=== PATIENT | female | born 1950 | race Caucasian/White ===

== ENCOUNTER 2017-11-10 05:45 | Observation (INO) | payer OTHER ==
[2017-11-04 15:19] VITALS: BMI 37.0
--- NOTE | 2017-11-04 15:44 | PAT Medication Instructions ---
Service Date Nov 04, 2017. Current Home Medication List Acetaminophen (Tylenol), 1,000 MG PO Q6-8 PRN for RN Alendronate/Cholecalciferol (Fosamax+D 70MG/2800 Iu), 1 TABLET PO WK Ascorbic Acid (Vitamin C), 500 MG PO QAM Bumetanide (Bumex), 2 MG PO QAM Ergocalciferol (Vitamin D 16110 Unit), 50,000 UNIT PO WK Loratadine (Claritin), 10 MG PO PRN Lorazepam (Ativan), 1 MG PO HS Saline (Saline Nasal [place] Infant), 2 SPRY GLADYS PRN Simethicone (Gas-X), 1 TAB PO PRN Venlafaxine Hcl (Effexor Xr), 1 CAP PO QAM [Reflux Med], 1 TAB PO PRN Medication Instructions For Your Scheduled Surgery - Continue as directed: Ergocalciferol (Vitamin D 78091 Unit), 50,000 UNIT PO WK Alendronate/Cholecalciferol (Fosamax+D 70MG/2800 Iu), 1 TABLET PO WK - Hold the following medications the morning of surgery: Ascorbic Acid (Vitamin C), 500 MG PO QAM Bumetanide (Bumex), 2 MG PO QAM Loratadine (Claritin), 10 MG PO PRN Simethicone (Gas-X), 1 TAB PO PRN [Reflux Med], 1 TAB PO PRN - Take the following medications the morning of surgery with a sip of water: Venlafaxine Hcl (Effexor Xr), 1 CAP PO QAM Saline (Saline Nasal [place] ), 2 SPRY GLADYS PRN (if needed) Acetaminophen (Tylenol), 1,000 MG PO Q6-8 PRN for RN (okay to take up to 4 hours prior to surgery if needed) - Take the following medications as scheduled the night before surgery: [Reflux Med], 1 TAB PO PRN (if needed) Simethicone (Gas-X), 1 TAB PO PRN(if needed) Saline (Saline Nasal [place] Infant), 2 SPRY GLADYS PRN(if needed) Lorazepam (Ativan), 1 MG PO HS Loratadine (Claritin), 10 MG PO PRN(if needed) Acetaminophen (Tylenol), 1,000 MG PO Q6-8 PRN for RN(if needed) If you have any questions please call us at [phone] or [phone] or [phone]
[2017-11-04 16:33] LABS: BASO % 0.7 %; BASO ABS # 0.05 K/uL (0-0.2); EOS % 2.6 %; EOS ABS # 0.19 K/uL (0-0.5); HEMATOCRIT 36.2 % (37-47); IG# 0.01 K/uL (0.00-0.02); LYMPH % 26.9 %; LYMPH ABS # 1.94 K/uL (1.2-3.4); MEAN CELL VOLUME 91.4 fL (80-100); MEAN CORPUSCULAR HEMOGLOBIN 30.3 pg (25-34); MEAN CORPUSCULAR HGB CONC 33.1 g/dl (32-36); MEAN PLATELET VOLUME 10.8 fL (7.4-10.4); MONO % 6.5 %; MONO ABS # 0.47 K/uL (0.11-0.59); NEUT % 63.2 %; NEUT ABS # 4.55 K/uL (1.4-6.5); PLATELET COUNT 348 K/uL (130-400); RED CELL DISTRIBUTION WIDTH CV 13.3 % (11.5-14.5); RED CELL DISTRIBUTION WIDTH SD 44.3 fL (36.4-46.3); WHITE BLOOD COUNT 7.21 K/uL (4.8-10.8)
[2017-11-04 16:44] LABS: PTT PATIENT 26.6 SECONDS (21.0-31.0)
[2017-11-04 16:45] LABS: ALBUMIN 3.5 gm/dl (3.4-5.0)
[~2017-11-10] VITALS: Ht 154.9 cm; Wt 88.4 kg
[~2017-11-10 05:45] MED LIST: ACET-1256 PO; ASCO1CAP3 PO; ATV/1 PO; BUME2TAB3 PO; CLR10 PO; ERGO500037 PO; FSMD/70 PO; LANS30CA12 PO; SALI1SPR15 NAE; SIME80CH PO; VENL75CA PO
[2017-11-10] MEDS ORDERED: CEFAZOLIN 2000MG IV PUSH 15 ML IV SCH (06:00)
[2017-11-10] MEDS ORDERED: LACTATED RINGER'S 1000ML 1,000 ML IV SCH ×2 (06:00)
[2017-11-10 06:47] VITALS: BP 155/84; PULSE 97; TEMP 36.6; O2SAT 97; Ht 154.9 cm; Wt 88.4 kg
[2017-11-10] MEDS ORDERED: NAPR-1169 PO (06:47)
--- NOTE | 2017-11-10 06:52 | History & Physical Bridge Note ---
H&P Re-Evaluation Bridge Note: I have examined the patient, reviewed the History & Physical and in the interval since the performance of the History & Physical I have noted the following changes of clinical significance: No changes noted
[2017-11-10] MEDS ORDERED: HYDROmorphone INJ 2 MG/ML SYR/VIAL ONE ×2 (06:56→14:32)
[2017-11-10] MEDS ORDERED: METOCLOPRAMIDE HCL INJ 5 MG/ML 2 ML VIAL ONE (06:56)
[2017-11-10] MEDS ORDERED: FENTANYL CITRATE INJ 50 MCG/1 ML 2 ML VIAL ONE ×4 (06:56→16:25)
[2017-11-10] MEDS ORDERED: ONDANSETRON INJ 2 MG/ML 2 ML VIAL ONE (06:56)
[2017-11-10] MEDS ORDERED: PROPOFOL IV EMULSION 10 MG/ML 20 ML VIAL IV ONE (06:56)
[2017-11-10] MEDS ORDERED: LIDOCAINE HCL 2% 2 ML VIAL (20MG/ML) ONE (06:56)
[2017-11-10] MEDS ORDERED: MIDAZOLAM HCL 1 MG/ML 2ML VIAL ONE ×2 (06:56→14:53)
[2017-11-10] MEDS ORDERED: ACETAMINOPHEN 1000 MG/100 ML IV IV ONE (06:59)
[2017-11-10] MEDS ORDERED: SODIUM CHLORIDE 0.9% INJ 10 ML VIAL ONE (07:06)
[2017-11-10] MEDS ORDERED: BUPIVACAINE 0.25% 30 ML VIAL ONE (07:15)
[2017-11-10] MEDS ORDERED: LIDOCAINE/EPINEPHRINE 1% 20 ML VIAL ONE (07:15)
[2017-11-10] MEDS ORDERED: EpHEDrine SULFATE 50MG/5ML SYR ONE (09:38)
[2017-11-10] MEDS ORDERED: PHENYLEPHRINE 100MCG/ML 5ML SYR ONE (09:38)
[2017-11-10] MEDS ORDERED: HYDROmorphone INJ 1 MG/ML SYR IV PRN (10:00)
[2017-11-10] MEDS ORDERED: LABETALOL HCL IV 5 MG/ML 20ML IV PRN (10:00)
[2017-11-10] MEDS ORDERED: MEPERIDINE HCL 25 MG/ML CARP IV PRN (10:00)
[2017-11-10] MEDS ORDERED: ONDANSETRON INJ 2 MG/ML 2 ML VIAL IV PRN ×2 (10:00→16:15)
[2017-11-10] MEDS ORDERED: EpHEDrine SULFATE INJ 50 MG/ML AMP IV PRN (10:00)
[2017-11-10] MEDS ORDERED: FENTANYL CITRATE INJ 50 MCG/1 ML 2 ML VIAL IV PRN (10:00)
[2017-11-10] MEDS ORDERED: ATROPINE SULFATE 0.1 MG/ML 5ML SYR IV PRN (10:00)
--- NOTE | 2017-11-10 10:06 | Discharge Instructions ---
Discharge Instructions Date of Service Nov 10, 2017. Admission Reason for Admission: Multiple Abdominal Wall Hernias, Abdominal Pannus Discharge Discharge Diagnosis / Problem: Multiple Abdominal Wall Hernias, Abdominal Pannus Discharge Goals Goal(s): Decrease discomfort, Improve function Activity Recommendations Activity Limitations: as noted below Lifting Limitations: no more than 10 pounds Exercise/Sports Limitations: until after follow-up appointment May Resume Sexual Activity: after follow-up appointment Driving or Machine Use: resume 1 day after discharge . Instructions / Follow-Up Instructions / Follow-Up Please follow-up with Dr. Ga in the General Surgery Clinic in 1-2 weeks. Please call the General Surgery Clinic at [phone] to schedule an appointment if you do not have one already. Please call the office with any questions or concerns. Current Hospital Diet Patient's current hospital diet: Discharge Diet Recommended Diet: Regular Diet Procedures Procedures Performed: Open Repair Multiple Abdominal Hernias with Mesh - Dr. Ga Bilateral Breast Reduction; Panniculectomy - Dr. Brown Pending Studies Studies pending at discharge: no Medical Emergencies . Who to Call and When: Medical Emergencies: If at any time you feel your situation is an emergency, please call 911 immediately. . Non-Emergent Contact Non-Emergency issues call your: Primary Care Provider, Surgeon Call Non-Emergent contact if: temperature is above 101.5, your pain is not controlled, wound has increased drainage, wound has increased redness . "Provider Documentation" section prepared by Maureen Castellano. . VTE Core Measure Inpt VTE Proph given/why not?: SCD's [place] Drug Monitoring Program Search Results: patient reviewed within database, no issues identified
--- NOTE | 2017-11-10 10:08 | [facility] Operative Report ---
Operative Report Operative Date Nov 10, 2017. Pre-Operative Diagnosis Abdominal Pannus, Incisional Hernia Post-Operative Diagnosis Abdominal Pannus, Incisional Hernia;adhesions Procedure(s) Performed Open Repair Multiple Abdominal Hernias with Mesh; enterolysis - Dr. Ga Bilateral Breast Reduction; Panniculectomy - Dr. Brown Surgeon Dr. Tena Brown, Dr. César Ga [employer] President Surgeon(s) Yvonne Childers PA-C, Maureen Castellano PA-C Estimated Blood Loss per Dr. Brown; approx 5 cc lost during hernia repair portion of the case Anesthesia Type General Complication(s) none Disposition Recovery Room / PACU Description of Procedure Please see Dr. Whiting's operative report for the majority of the procedure. The patient had already been intubated and abdominal pannus flaps created when I was called into the room. They had exposed the entire abdomen up to around the xiphoid process. There were 2 hernias 1 umbilical and one supraumbilical. No other palpable hernias were seen or identified. I did take down the sac using electrocautery. Once we did this it exposed some small bowel as well as omental adhesions to the undersurface. I took these down using small amounts electrocautery as well as Metzenbaum scissors. I was then able to feel through the ventral hernia into the umbilical hernia. There was a bridge of fascia which I disconnected creating 1 large defect to make repair more manageable. Once I had the discrete fascial edges I primarily closed these using 0 PDS in interrupted [id number] fashion. There was not much tension and I therefore decided not to do a component separation. I did use an Ovitex mesh onlay. I made a slit in the mesh so that we could wrap the arms around the umbilicus. I then secured this to underlying fascia using 2-0 Prolene in simple interrupted fashion. The entire mesh laid nice and tension free and covered the defect for several centimeters in all directions. At this point the case I scrubbed out. Again see Dr. Brown for the remainder of the case and wound closure I attest to the content of the Intraoperative Record and any orders documented therein. Any exceptions are noted below.
[2017-11-10] MEDS ORDERED: CEFAZOLIN SOD 1 GM VIAL ONE (10:25)
[2017-11-10] MEDS ORDERED: TISSEEL FIBRIN SEALANT 10ML TOP ONE (10:47)
[2017-11-10] MEDS ORDERED: KETAMINE HCL INJ 50 MG/ML 10 ML VIAL ONE (12:52)
[2017-11-10] MEDS ORDERED: LIDOCAINE/EPINEPHRINE 1% 20 ML VIAL INJ ONE (14:26)
[2017-11-10] MEDS ORDERED: GLYCOPYRROLATE INJ 0.2 MG/ML VIAL ONE (15:03)
[2017-11-10] MEDS ORDERED: NEOSTIGMINE METHYLSULFATE 5 MG/5 ML SYR ONE (15:03)
--- NOTE | 2017-11-10 15:53 | [facility] Post Operative Brief Note ---
Immediate Operative Summary Operative Date Nov 10, 2017. Pre-Operative Diagnosis Abdominal Pannus, Incisional Hernia, Macromastia Post-Operative Diagnosis Abdominal Pannus, Incisional Hernia, adhesions, macromastia Procedure(s) Performed Open Repair Multiple Abdominal Hernias with Mesh; enterolysis - Dr. Ga Bilateral Breast Reduction; Panniculectomy - Dr. Brown Surgeon Dr. Tena Bronw, Dr. César Ga Clinical Leader Surgeon(s) Yvonne Childers PA-C, Maureen Castellano PA-C Estimated Blood Loss 125ML Findings Consistent with Post-Op Diagnosis Specimens A.) Abdominal Pannus - sent out of room to lab by Loco Sandhu OR lauren at 1300 B.) Left Breast (1202grams) C.) Right Breast (1188grams) Anesthesia Type General Complication(s) none Disposition Disposition: Recovery Room / PACU
[2017-11-10] MEDS ORDERED: LABETALOL HCL IV 5 MG/ML 20ML IV ONE (16:10)
[2017-11-10] MEDS ORDERED: PROMETHAZINE HCL INJ 12.5 MG in SODIUM CHLORIDE 0.9% 50ML 50 ML IV PRN (16:15)
[2017-11-10] MEDS ORDERED: SIMETHICONE 80 MG CHEW PO PRN (16:15)
[2017-11-10] MEDS ORDERED: LORATADINE 10 MG TAB PO PRN (16:15)
[2017-11-10] MEDS ORDERED: DiphenhydrAMINE HCL 50 MG/ML VIAL IV PRN (16:15)
[2017-11-10] MEDS ORDERED: OXYCODONE/ACETAMINOPHEN 5-325 TAB PO PRN (16:15)
[2017-11-10] MEDS ORDERED: OXAZEPAM 10MG CAP PO PRN (16:15)
[2017-11-10] MEDS ORDERED: MoRPHine SULFATE 2 MG/ML CARP IV PRN ×2 (16:15)
[2017-11-10] MEDS ORDERED: ACETAMINOPHEN 325 MG TAB PO PRN (16:15)
--- NOTE | 2017-11-10 17:15 | Anesthesiology Progress Note ---
Anesthesia Post Op Note Date & Time Nov 10, 2017 at 17:15 Vital Signs Pain Intensity: 1 Vital Signs Past 12 Hours Date Time Temp Pulse Resp B/P (MAP) Pulse Ox O2 Delivery O2 Flow Rate FiO2 11/10/17 17:06 87 15 11/10/17 17:06 87 15 100 11/10/17 17:05 151/84 11/10/17 17:01 90 9 11/10/17 17:01 90 9 100 11/10/17 17:00 163/77 11/10/17 16:56 89 10 11/10/17 16:56 89 10 100 11/10/17 16:55 150/88 11/10/17 16:51 96 14 99 11/10/17 16:51 96 14 11/10/17 16:50 101 13 165/89 100 11/10/17 16:50 36.3 100 13 11/10/17 16:45 87 12 151/86 100 11/10/17 16:45 87 12 11/10/17 16:40 88 10 162/88 100 11/10/17 16:40 87 10 11/10/17 16:35 81 11 11/10/17 16:35 81 11 150/76 100 11/10/17 16:30 87 10 157/104 100 11/10/17 16:30 88 10 11/10/17 16:25 93 15 11/10/17 16:25 92 15 156/92 100 11/10/17 16:20 90 11 157/85 99 11/10/17 16:20 91 11 11/10/17 16:15 91 13 11/10/17 16:15 91 13 140/85 99 11/10/17 16:14 153/94 11/10/17 16:10 36 95 14 153/94 97 Oxymask 7 11/10/17 06:47 36.6 97 20 155/84 (107) 97 Room Air Notes Mental Status: alert / awake / arousable, participated in evaluation Pt Amnestic to Procedure: Yes Nausea / Vomiting: adequately controlled Pain: adequately controlled Airway Patency, RR, SpO2: stable & adequate BP & HR: stable & adequate Hydration State: stable & adequate Anesthetic Complications: no major complications apparent
[2017-11-10 17:20] VITALS: BP 152/76; PULSE 98; TEMP 36.6; O2SAT 100
[2017-11-10 18:20] VITALS: BP 139/83; PULSE 96; TEMP 36.6; O2SAT 100
[2017-11-10] MEDS: LACTATED RINGER'S 1000ML 1,000 ML IV SCH (18:35)
[2017-11-10] MEDS: MoRPHine SULFATE 2 MG/ML CARP IV PRN ×3 (18:36→21:53)
[2017-11-10] MEDS: CEFAZOLIN IV 2,000 MG in SYRINGE 5 ML IV SCH (19:03)
[2017-11-10] MEDS ORDERED: GLUCOSE 10 TABS/TUBE PO PRN (19:15)
[2017-11-10] MEDS ORDERED: GLUCAGON FOR INJ 1 MG VIAL SQ PRN (19:15)
[2017-11-10] MEDS ORDERED: GLUCOSE 40% GEL 15 GM TUBE PO PRN (19:15)
[2017-11-10 19:20] VITALS: BP 146/84; PULSE 96; TEMP 36.5; O2SAT 100
[2017-11-10 19:40] VITALS: O2SAT 100
[2017-11-10] MEDS ORDERED: LORAZEPAM 1 MG TAB PO SCH (21:00)
[2017-11-10] MEDS ORDERED: IV FLUIDS COMPLETED PRN (21:00)
[2017-11-10] MEDS: INSULIN ASPART 100 UNITS/ML 3 ML PEN SC SCH (21:35)
[2017-11-10 23:45] VITALS: BP 132/83; PULSE 92; TEMP 37; O2SAT 97
[2017-11-11] MEDS: CEFAZOLIN IV 2,000 MG in SYRINGE 5 ML IV SCH (02:16)
[2017-11-11 03:50] VITALS: BP 121/78; PULSE 123; TEMP 36.9; O2SAT 93
[2017-11-11] MEDS: MoRPHine SULFATE 2 MG/ML CARP IV PRN (04:30)
[2017-11-11 04:35] VITALS: PULSE 112; O2SAT 95
[2017-11-11] MEDS: OXYCODONE/ACETAMINOPHEN 5-325 TAB PO PRN ×2 (05:28→09:49)
[2017-11-11] MEDS: LACTATED RINGER'S 1000ML 1,000 ML IV SCH (05:28)
[2017-11-11 06:49] VITALS: BP 124/70; PULSE 114; TEMP 36.9; O2SAT 95
[2017-11-11 07:19] LABS: BASO % 0.3 %; BASO ABS # 0.03 K/uL (0-0.2); EOS % 1.9 %; HEMATOCRIT 28.8 % (37-47); HEMOGLOBIN 9.5 g/dL (12.0-16.0); IG# 0.02 K/uL (0.00-0.02); LYMPH % 10.2 %; LYMPH ABS # 1.07 K/uL (1.2-3.4); MEAN CELL VOLUME 92.3 fL (80-100); MEAN CORPUSCULAR HEMOGLOBIN 30.4 pg (25-34); MEAN PLATELET VOLUME 10.2 fL (7.4-10.4); MONO % 7.8 %; MONO ABS # 0.81 K/uL (0.11-0.59); NEUT % 79.6 %; NEUT ABS # 8.31 K/uL (1.4-6.5); PLATELET COUNT 248 K/uL (130-400); RED CELL DISTRIBUTION WIDTH CV 13.6 % (11.5-14.5); RED CELL DISTRIBUTION WIDTH SD 45.7 fL (36.4-46.3); WHITE BLOOD COUNT 10.44 K/uL (4.8-10.8)
[2017-11-11 07:28] LABS: INR 1.1 (0.9-1.1); PTT PATIENT 28.1 SECONDS (21.0-31.0)
[2017-11-11 07:53] LABS: CALCIUM 7.3 mg/dl (8.5-10.1); CREATININE 1.16 mg/dl (0.60-1.20)
--- NOTE | 2017-11-11 08:15 | Discharge Instructions ---
Discharge Instructions Date of Service Nov 11, 2017. Admission Reason for Admission: Multiple Abdominal Wall Hernias, Abdominal Pannus Discharge Discharge Diagnosis / Problem: macromastia, abdominal pannus Discharge Goals Goal(s): Decrease discomfort, Improve function Activity Recommendations Activity Limitations: per Instructions/Follow-up section ACTIVITY RECOMMENDATIONS: __Normal activities _x_No bending, lifting or straining. Do not stand straight until comfortable __No driving __Driving allowed when you are off pain medications _x_Walking permitted __You should have help at home for ___ days DRESSINGS: __No dressings required __Keep dressings dry/in place until first office visit _x_Remove yellow gauze from belly button and replace daily. OK to replace the yellow gauze around your drain sites once a day. Do not need gauze over incisions, but may place for comfort __Apply ice ___ days __Remove dressings and reapply garment __Apply antibiotic ointment (Bacitracin, Neosporin, etc) to wounds 3-4 times/ day for 10 days BATHING: _x_Keep dressings dry _x_Sponge bathing permitted away from incisions. Do not get breasts wet __Showering permitted _x_No swimming, hot tubs or soaking in a tub MEDICATIONS: Resume previous medications unless instructed otherwise by your surgeon. _x_Do not use aspirin, Motrin, Advil or Ibuprofen as these may promote bleeding. Please use Tylenol. _x_Prescription(s) provided: pain medication and antibiotics provided at your last office visit. Start antibiotics today. Must come into office by Friday if you need more pain medication- cannot call into pharmacy OTHER INSTRUCTIONS: _x_Record drain output 2-3 times per day. Call the office to have drain removed when output is 10cc/24 hours SPECIAL CARE INSTRUCTIONS: * It is normal to have a mild fever after surgery. If your temperature is higher than 101.5 degrees F, please call the office at [phone]. * Constipation is a typical side effect of pain medication. An over-the- counter stool softener will help relieve this. * Leaking around surgical drains may occur and should not cause concern. Sometimes these drains become clogged. If this happens, remove the bulb and milk the clot out of the tube, then replace the bulb. * Drainage from wounds after liposuction is normal and should be expected. Garments will become soiled. You should protect furniture and bedding. This drainage should mostly subside within 2-3 days. Leave garments in place unless instructed to remove them. * If you have unusual drainage from a wound or are concerned you have an infection or have any questions or concerns, please call the office at [phone]. FOLLOW UP VISIT: If not already scheduled, please call the office, , when you return home after surgery to schedule an appointment to be seen on FRIDAY 11/17 . Current Hospital Diet Patient's current hospital diet: Diabetes Type 2 Diet Discharge Diet Recommended Diet: Regular Diet (high protein, low sugar) Procedures Procedures Performed: Open Repair Multiple Abdominal Hernias with Mesh; enterolysis - Dr. Ga Bilateral Breast Reduction; Panniculectomy - Dr. Brown Pending Studies Studies pending at discharge: yes List of pending studies: pathology Medical Emergencies . Who to Call and When: Medical Emergencies: If at any time you feel your situation is an emergency, please call 911 immediately. . Non-Emergent Contact Non-Emergency issues call your: Primary Care Provider, Surgeon . "Provider Documentation" section prepared by Yvonne Childers. . VTE Core Measure Inpt VTE Proph given/why not?: Enoxaparin (Lovenox)SQ, SCD's [place] Drug Monitoring Program Search Results: no issues identified
[2017-11-11] MEDS ORDERED: CEPH-571 PO (08:16)
[2017-11-11] MEDS: BUMETANIDE 1 MG TAB PO SCH ×2 (08:48→11:31)
[2017-11-11] MEDS ORDERED: MULTIVITAMIN TAB PO SCH (09:00)
[2017-11-11] MEDS ORDERED: VENLAFAXINE HCL XR 75 MG CAPXR PO SCH (09:00)
[2017-11-11] MEDS ORDERED: ENOXAPARIN 40 MG/0.4 ML SYR SQ SCH (09:00)
[2017-11-11] MEDS ORDERED: PANTOprazole SOD 40 MG TAB PO SCH (09:00)
[2017-11-11] MEDS: INSULIN ASPART 100 UNITS/ML 3 ML PEN SC SCH ×2 (09:33→12:58)
--- NOTE | 2017-11-11 10:05 | Medical Consult ---
Consultation Date of Consultation: Nov 11, 2017. Attending Physician: Tena Brown MD Reason for Consultation: medical management History of Present Illness 67 yo female with history of gastric bypass and significant weight loss who was admitted after paniculectomy and bilateral breast reduction. She has been dealing with her panus for quite some time, was causing skin breakdown between her folds. In addition to the above procedure, she had a ventral hernia repair with mesh by Dr. Ga. The procedure was without complication, minimal blood loss. This morning she is in moderate amount of pain but the narcotics are helping. She denies chest pain, dyspnea, nausea or vomiting. Reviewed labs , stable. She has some tachycardia with the pain. She says she has DM type II, diet controlled, her weight loss after gastric bypass helped with control, not on any medications or insulin at home. She also used to take BP medications but those were stopped after gastric bypass. Multiple surgeries in the past. She denies any history of heart attack, heart failure, arrhythmias, stroke, kidney disease. Family history of cancer. Past Medical/Surgical History s/p gastric bypass for morbid obesity Panus Macromastia DM type II, diet controlled GERD Anxiety Seasonal allergies s/p cholecystectomy s/p hysterectomy with CHRISTOPHER Family History Fathers side of family: multiple cancers, uterine, colon, lung Social History Smoking Status: Former Smoker Allergies Coded Allergies: No Known Allergies (Unverified , 11/10/17) Home Medications Claritin Ativan Effexor Prevacid Vitamin D Vitamin C Bumex Tylenol PRN Naprosyn PRN Current Inpatient Medications Current Inpatient Medications Medications (Trade) Dose Ordered Sig/Giovani Route Start Time Stop Time Status Last Admin Dose Admin Lactated Ringer's 1,000 ml @ 75 mls/hr [id number] IV 11/10/17 16:06 12/10/17 16:05 11/11/17 05:28 75 MLS/HR Acetaminophen (Tylenol Tab) 650 mg Q4H PRN PO 11/10/17 16:15 12/10/17 16:14 11/10/17 21:39 650 MG Morphine Sulfate (MoRPHine SULFATE INJ) 1 mg Q1H PRN IV 11/10/17 16:15 11/24/17 16:14 Oxycodone/ Acetaminophen (Percocet 5-325mg Tab) 1 tab Q4H PRN PO 11/10/17 16:15 2/19/18 16:14 Morphine Sulfate (MoRPHine SULFATE INJ) 2 mg Q1H PRN IV 11/10/17 16:15 11/24/17 16:14 11/11/17 04:30 2 MG Oxycodone/ Acetaminophen (Percocet 5-325mg Tab) 2 tab Q4H PRN PO 11/10/17 16:15 11/24/17 16:14 11/11/17 05:28 2 TAB Morphine Sulfate (MoRPHine SULFATE INJ) 4 mg Q1H PRN IV 11/10/17 16:15 11/24/17 16:14 11/11/17 02:12 4 MG Ondansetron HCl (Zofran Inj) 4 mg ONE PRN IV 11/10/17 16:15 12/10/17 16:14 Multivitamins (Multivitamin Tab) 1 tab DAILY PO 11/11/17 09:00 12/11/17 08:59 11/11/17 08:46 1 TAB Diphenhydramine HCl (Benadryl Cap) 25 mg Q6H PRN PO 11/10/17 16:15 12/10/17 16:14 Diphenhydramine HCl (Benadryl Inj) 25 mg Q6H PRN IV 11/10/17 16:15 12/10/17 16:14 Oxazepam (Serax Cap) 10 mg HS PRN PO 11/10/17 16:15 12/10/17 16:14 Promethazine HCl 12.5 mg/Sodium Chloride 50.5 ml @ 200 mls/hr Q6H PRN IV 11/10/17 16:15 12/10/17 16:14 Enoxaparin Sodium (Lovenox Inj) 40 mg DAILY SQ 11/11/17 09:00 12/11/17 08:59 11/11/17 08:47 40 MG Bumetanide (Bumex Tab) 2 mg QAM PO 11/11/17 09:00 12/11/17 08:59 Loratadine (Claritin Tab) 10 mg DAILY PRN PO 11/10/17 16:15 12/10/17 16:14 Lorazepam (Ativan Tab) 1 mg HS PO 11/10/17 21:00 12/10/17 20:59 11/10/17 21:33 1 MG Simethicone (Mylicon Chew Tab) 80 mg DAILY PRN PO 11/10/17 16:15 12/10/17 16:14 Venlafaxine HCl (effeXOR EXTENDED REL CAP) 75 mg QAM PO 11/11/17 09:00 12/11/17 08:59 11/11/17 08:45 75 MG Pantoprazole Sodium (Protonix Tab) 40 mg QAM PO 11/11/17 09:00 12/11/17 08:59 11/11/17 08:46 40 MG Glucagon (Glucagon Inj) 1 mg UD PRN SQ 11/10/17 19:15 12/10/17 19:14 Glucose (Glucose 40% Gel) 15-30 GRAMS 15 GRAMS... UD PRN PO 11/10/17 19:15 12/10/17 19:14 Glucose (Glucose Chew Tab) 4-8 Tablets 4 Tabl... UD PRN PO 11/10/17 19:15 12/10/17 19:14 Insulin Aspart (novoLOG ASPART) SLIDING SCALE If C... ACHS SC 11/10/17 21:00 12/10/17 20:59 11/11/17 09:33 2 UNITS Miscellaneous (Iv Fluids Completed) 1 ea PRN PRN N/A 11/10/17 21:00 11/10/18 20:59 Cephalexin Monohydrate (Keflex Cap) 500 mg 3XDQ4 PO 11/11/17 12:00 11/13/17 11:59 Review of Systems Constitutional: + weakness, + fatigue, No fever, No chills, No sweats, No weight loss, No problem reported Eyes: No worsening of vision, No eye pain, No redness, No discharge, No diplopia, No problem reported ENT: No hearing loss, No unusual epistaxis, No nasal symptoms, No sore throat, No tinnitus, No dental problems, No trouble swallowing, No problem reported Respiratory: No cough, No sputum, No wheezing, No shortness of breath, No dyspnea on exertion, No dyspnea at rest, No hemoptysis, No problem reported Cardiovascular: + chest pain (bilateral breast pain related to reduction), No orthopnea, No PND, No edema, No claudication, No palpitations, No problem reported Abdomen: + pain (related to paniculectomy), No nausea, No vomiting, No diarrhea , No constipation, No GI bleeding, No problem reported Musculoskeletal: No joint pain, No muscle pain, No swelling, No calf pain, No problem reported Genitourinary - Female: No dysuria, No urinary frequency, No urinary urgency, No urinary incontinence, No urinary retention, No hematuria Neurologic: No memory loss, No paralysis, No weakness, No numbness/tingling, No vertigo, No balance problems, No problem reported Psychiatric: No depression symptoms, No anhedonism, No anxiety, No insomnia, No substance abuse, No problem reported Endocrine: No fatigue, No excessive thirst, No excessive urination, No problem reported Hematologic / Lymphatic: No abnormal bleeding/bruising, No clotting problems, No swollen lymph nodes, No night sweats, No problem reported Integumentary: No rash, No itch, No new/changing skin lesions, No color change , No bleeding, No problem reported Allergic / Immunologic: No environmental allergies, No seasonal allergies, No pet sensitivities, No food allergies, No hives, No frequent infections, No poor healing, No prolonged convalescence, No problem reported Physical Exam Date Time Temp Pulse Resp B/P (MAP) Pulse Ox O2 Delivery O2 Flow Rate FiO2 11/11/17 06:49 36.9 114 20 124/70 (88) 95 Room Air 11/11/17 04:35 112 95 Room Air 11/11/17 03:50 36.9 123 18 121/78 (92) 93 Room Air 11/10/17 23:57 Room Air 11/10/17 23:45 37.0 92 16 132/83 (99) 97 Room Air 11/10/17 19:40 Room Air 11/10/17 19:40 100 Room Air 11/10/17 19:20 36.5 96 16 146/84 (104) 100 Nasal Cannula 2.0 11/10/17 18:20 36.6 96 16 139/83 (101) 100 Nasal Cannula 2.0 11/10/17 17:20 100 Nasal Cannula 2.0 11/10/17 17:20 100 Nasal Cannula 2.0 11/10/17 17:20 36.6 98 16 152/76 (101) 100 Nasal Cannula 2.0 11/10/17 17:06 87 15 11/10/17 17:06 87 15 100 11/10/17 17:05 151/84 11/10/17 17:01 90 9 11/10/17 17:01 90 9 100 11/10/17 17:00 163/77 11/10/17 16:56 89 10 11/10/17 16:56 89 10 100 11/10/17 16:55 150/88 11/10/17 16:51 96 14 99 11/10/17 16:51 96 14 11/10/17 16:50 101 13 165/89 100 11/10/17 16:50 36.3 100 13 11/10/17 16:45 87 12 151/86 100 11/10/17 16:45 87 12 11/10/17 16:40 88 10 162/88 100 11/10/17 16:40 87 10 11/10/17 16:35 81 11 11/10/17 16:35 81 11 150/76 100 11/10/17 16:30 87 10 157/104 100 11/10/17 16:30 88 10 11/10/17 16:25 93 15 11/10/17 16:25 92 15 156/92 100 11/10/17 16:20 90 11 157/85 99 11/10/17 16:20 91 11 11/10/17 16:15 91 13 11/10/17 16:15 91 13 140/85 99 11/10/17 16:14 153/94 11/10/17 16:10 36 95 14 153/94 97 Oxymask 7 General Appearance: no apparent distress, + obese Head: normocephalic, atraumatic Eyes: normal inspection, EOMI, sclerae normal ENT: normal ENT inspection, hearing grossly normal, pharynx normal Neck: supple, no adenopathy, no JVD, trachea midline Respiratory/Chest: chest non-tender, lungs clear, normal breath sounds, no respiratory distress, no accessory muscle use Cardiovascular: regular rate, rhythm, no edema, no gallop, no JVD, no murmur, normal peripheral pulses Abdomen/GI: normal bowel sounds, non tender, soft, no organomegaly Back: normal inspection, no CVA tenderness, no muscle spasm, normal range of motion Extremities/Musculoskelatal: normal inspection, no calf tenderness, normal capillary refill, no pedal edema, normal range of motion, pelvis stable Neurologic/Psych: music promoter II-XII nml as tested, no motor/sensory deficits, alert, normal mood/affect, normal reflexes, oriented x 3 Skin: normal color, warm/dry, no rash Laboratory Results Last 24 Hours Test 11/10/17 16:28 11/10/17 17:33 11/10/17 20:37 11/10/17 23:46 Bedside Glucose 208 mg/dl 200 mg/dl 184 mg/dl 171 mg/dl Test 11/11/17 07:06 White Blood Count 10.44 K/uL Red Blood Count 3.12 M/uL Hemoglobin 9.5 g/dL Hematocrit 28.8 % Mean Corpuscular Volume 92.3 fL Mean Corpuscular Hemoglobin 30.4 pg Mean Corpuscular Hemoglobin Concent 33.0 g/dl Platelet Count 248 K/uL Mean Platelet Volume 10.2 fL Neutrophils (%) (Auto) 79.6 % Lymphocytes (%) (Auto) 10.2 % Monocytes (%) (Auto) 7.8 % Eosinophils (%) (Auto) 1.9 % Basophils (%) (Auto) 0.3 % Neutrophils # (Auto) 8.31 K/uL Lymphocytes # (Auto) 1.07 K/uL Monocytes # (Auto) 0.81 K/uL Eosinophils # (Auto) 0.20 K/uL Basophils # (Auto) 0.03 K/uL RDW Standard Deviation 45.7 fL RDW Coefficient of Variation 13.6 % Immature Granulocyte % (Auto) 0.2 % Immature Granulocyte # (Auto) 0.02 K/uL Prothrombin Time 11.4 SECONDS Prothromb Time International Ratio 1.1 Activated Partial Thromboplast Time 28.1 SECONDS Partial Thromboplastin Ratio 1.1 Sodium Level 137 mmol/L Potassium Level 4.0 mmol/L Chloride Level 107 mmol/L Carbon Dioxide Level 23 mmol/L Anion Gap 8.0 mmol/L Blood Urea Nitrogen 17 mg/dl Creatinine 1.16 mg/dl Est Creatinine Clear Calc Drug Dose 46.9 ml/min Estimated GFR () 56.0 Estimated GFR (Non- 48.3 BUN/Creatinine Ratio 14.3 Random Glucose 172 mg/dl Calcium Level 7.3 mg/dl Hepatitis C Antibody Screen NEG Assessment & Plan 67 yo female with h/o obesity, s/p gastric bypass, now with paniculectomy and bilateral breast reduction, hernia repair - DM type II: continue diet control, no need to start any medications, follow up with PCP after recovered from surgery - Anxiety disorder: stable, continue Effexor and Ativan PRN - GERD: Prevacid - Tachycardia: likely due to pain, no chest pressure, no dyspnea okay for discharge from medical standpoint Additional Copies To Luis Manuel Raines D.O.
--- NOTE | 2017-11-11 10:11 | Anesthesiology Progress Note ---
Anesthesia Post Op Note Date & Time Nov 11, 2017 at 10:10 Vital Signs Pain Intensity: 8.0 Vital Signs Past 12 Hours Date Time Temp Pulse Resp B/P (MAP) Pulse Ox O2 Delivery O2 Flow Rate FiO2 11/11/17 06:49 36.9 114 20 124/70 (88) 95 Room Air 11/11/17 04:35 112 95 Room Air 11/11/17 03:50 36.9 123 18 121/78 (92) 93 Room Air 11/10/17 23:57 Room Air 11/10/17 23:45 37.0 92 16 132/83 (99) 97 Room Air Notes Mental Status: alert / awake / arousable, participated in evaluation Pt Amnestic to Procedure: Yes Nausea / Vomiting: adequately controlled Pain: adequately controlled, improving with treatment Airway Patency, RR, SpO2: stable & adequate BP & HR: stable & adequate Hydration State: stable & adequate Anesthetic Complications: no major complications apparent
[2017-11-11 11:33] VITALS: BP 115/64; PULSE 116; TEMP 36.8; O2SAT 95
[2017-11-11] MEDS ORDERED: CEPHALEXIN MONOHYDRATE 500 MG CAP PO SCH (12:00)
[2017-11-11 12:39] VITALS: BP 115/64; PULSE 116; TEMP 36.8; O2SAT 95
--- NOTE | 2017-11-11 12:46 | Surgery Progress Note ---
Surgery Progress Note Date of Service Nov 11, 2017. Subjective Post OP Day: 1 + feeling well, + pain controlled, No SOB, No nausea, No vomiting Objective Vital Signs: Date Time Temp Pulse Resp B/P (MAP) Pulse Ox O2 Delivery O2 Flow Rate FiO2 11/11/17 11:33 36.8 116 16 115/64 (81) 95 Room Air 11/11/17 08:15 Room Air 11/11/17 06:49 36.9 114 20 124/70 (88) 95 Room Air 11/11/17 04:35 112 95 Room Air 11/11/17 03:50 36.9 123 18 121/78 (92) 93 Room Air 11/10/17 23:57 Room Air 11/10/17 23:45 37.0 92 16 132/83 (99) 97 Room Air 11/10/17 19:40 Room Air 11/10/17 19:40 100 Room Air 11/10/17 19:20 36.5 96 16 146/84 (104) 100 Nasal Cannula 2.0 11/10/17 18:20 36.6 96 16 139/83 (101) 100 Nasal Cannula 2.0 11/10/17 17:20 100 Nasal Cannula 2.0 11/10/17 17:20 100 Nasal Cannula 2.0 11/10/17 17:20 36.6 98 16 152/76 (101) 100 Nasal Cannula 2.0 11/10/17 17:06 87 15 11/10/17 17:06 87 15 100 11/10/17 17:05 151/84 11/10/17 17:01 90 9 11/10/17 17:01 90 9 100 11/10/17 17:00 163/77 11/10/17 16:56 89 10 11/10/17 16:56 89 10 100 11/10/17 16:55 150/88 11/10/17 16:51 96 14 99 11/10/17 16:51 96 14 11/10/17 16:50 101 13 165/89 100 11/10/17 16:50 36.3 100 13 11/10/17 16:45 87 12 151/86 100 11/10/17 16:45 87 12 11/10/17 16:40 88 10 162/88 100 11/10/17 16:40 87 10 11/10/17 16:35 81 11 11/10/17 16:35 81 11 150/76 100 11/10/17 16:30 87 10 157/104 100 11/10/17 16:30 88 10 11/10/17 16:25 93 15 11/10/17 16:25 92 15 156/92 100 11/10/17 16:20 90 11 157/85 99 11/10/17 16:20 91 11 11/10/17 16:15 91 13 11/10/17 16:15 91 13 140/85 99 11/10/17 16:14 153/94 11/10/17 16:10 36 95 14 153/94 97 Oxymask 7 Physical Exam: Javier drainage (bloody and serous drainagein all drains) General Appearance: WD/WN, no apparent distress Incision(s): clean, dry, intact, no erythema, findings (nipple grafts in place) Laboratory Results: Results Past 24 Hours Test 11/10/17 16:28 11/10/17 17:33 11/10/17 20:37 11/10/17 23:46 Range/Units Bedside Glucose 208 200 184 171 70-90 mg/dl Test 11/11/17 07:06 11/11/17 08:05 11/11/17 12:02 Range/Units White Blood Count 10.44 4.8-10.8 K/uL Red Blood Count 3.12 4.2-5.4 M/uL Hemoglobin 9.5 12.0-16.0 g/dL Hematocrit 28.8 37-47 % Mean Corpuscular Volume 92.3 80-100 fL Mean Corpuscular Hemoglobin 30.4 25-34 pg Mean Corpuscular Hemoglobin Concent 33.0 32-36 g/dl Platelet Count 248 130-400 K/uL Mean Platelet Volume 10.2 7.4-10.4 fL Neutrophils (%) (Auto) 79.6 % Lymphocytes (%) (Auto) 10.2 % Monocytes (%) (Auto) 7.8 % Eosinophils (%) (Auto) 1.9 % Basophils (%) (Auto) 0.3 % Neutrophils # (Auto) 8.31 1.4-6.5 K/uL Lymphocytes # (Auto) 1.07 1.2-3.4 K/uL Monocytes # (Auto) 0.81 0.11-0.59 K/uL Eosinophils # (Auto) 0.20 0-0.5 K/uL Basophils # (Auto) 0.03 0-0.2 K/uL RDW Standard Deviation 45.7 36.4-46.3 fL RDW Coefficient of Variation 13.6 11.5-14.5 % Immature Granulocyte % (Auto) 0.2 % Immature Granulocyte # (Auto) 0.02 0.00-0.02 K/uL Prothrombin Time 11.4 9.0-12.0 SECONDS Prothromb Time International Ratio 1.1 0.9-1.1 Activated Partial Thromboplast Time 28.1 21.0-31.0 SECONDS Partial Thromboplastin Ratio 1.1 Sodium Level 137 136-145 mmol/L Potassium Level 4.0 3.5-5.1 mmol/L Chloride Level 107 98-107 mmol/L Carbon Dioxide Level 23 21-32 mmol/L Anion Gap 8.0 3-11 mmol/L Blood Urea Nitrogen 17 7-18 mg/dl Creatinine 1.16 0.60-1.20 mg/dl Est Creatinine Clear Calc Drug Dose 46.9 ml/min Estimated GFR () 56.0 Estimated GFR (Non- 48.3 BUN/Creatinine Ratio 14.3 10-20 Random Glucose 172 70-99 mg/dl Calcium Level 7.3 8.5-10.1 mg/dl Hepatitis C Antibody Screen NEG NEG Bedside Glucose 188 211 70-90 mg/dl Assessment & Plan s/p panniculectomy with ventral hernia repair using mesh and bilateral breast reduction 1. Pain is controlled. breast drains removed. Reviewed post-op instructions and dressing changes. 2. Discussed high protein/low sugar diet. 3. D/C home after eval by case investigator for [facility] to aid in dressing changes and blood sugar checks. 4. per medicine consult, patient ok to d/c home
--- NOTE | 2017-11-12 07:53 | Discharge Summary ---
Discharge Summary Date of Service Nov 12, 2017. Admission Date/Reason Nov 10, 2017 at 16:15 Multiple Abdominal Wall Hernias, Abdominal Pannus. Discharge Date/Disposition Nov 11, 2017 Home with services Diagnosis Principal Diagnosis: macromastia, ventral hernia, abdominal pannus Procedure(s) Performed panniculectomy, ventral hernia repair with mesh and bilateral breast reduction Consultations medicine, case management Medication Reconciliation New Medications: Cephalexin (Keflex) 500 Mg Cap 1 CAP PO TID for 7 Days, #21 CAP Continued Medications: Acetaminophen (Tylenol) 500 Mg Tab 1000 MG PO Q6-8 PRN for RN, TAB Alendronate/Cholecalciferol (Fosamax+D 70MG/2800 Iu) 70 Mg Tab 1 TABLET PO WK, TAB FRIDAY AM Ascorbic Acid (Vitamin C) 500 Mg Cap 500 MG PO QAM Bumetanide (Bumex) 2 Mg Tab 2 MG PO QAM, TAB Ergocalciferol (Vitamin D 36489 Unit) 50,000 Unit Cap 83781 UNIT PO WK, CAP FRIDAY AM Lansoprazole (Prevacid) 30 Mg Capcr 30 MG PO DAILY, CAP Loratadine (Claritin) 10 Mg Tab 10 MG PO PRN, TAB Lorazepam (Ativan) 1 Mg Tab 1 MG PO HS, TAB Saline (Saline Nasal [place] ) 0.65 % Spr 2 SPRY GLADYS PRN for 7 Days, #60 ML Simethicone (Gas-X) 80 Mg Chw 1 TAB PO PRN Venlafaxine Hcl (Effexor Xr) 75 Mg Cap 1 CAP PO QAM for 30 Days, #30 CAP Discontinued Medications: Naproxen (Naprosyn) 500 Mg Tab 500 MG PO DAILY, TAB Admission Physical Exam As per Admitting History & Physical. Hospital Course Patient presented to same day surgery with history of abdominal pannus, ventral wall hernia and symptomatic macromastia. She underwent panniculectomy, hernia repair with mesh by Dr. Ga, and breast reduction. She tolerated the procedure well with no complications. She was taken to recovery and transferred to med/surg for observation. Her pain was well controlled overnight. She did have some increased heart rate in response to pain, but no SOB. On POD #1, her suero was removed, breast drains were removed and patient was able to ambulate. On exam, her incisions were clean, dry, intact. and nipple bolster dressings intact. She was evaluated by the hospitalist who felt she was stable for discharge. She was seen by case management who helped set up home nurse visits. Patient was discharged home with instructions to change umbilicus dressing daily and follow-up in the office. Discharge Instructions Please refer to the electronic Patient Visit Report (Discharge Instructions) for additional information.
--- NOTE | 2017-11-12 09:05 | OPERATIVE REPORT ---
DATE OF OPERATION: 11/10/2017 PREOPERATIVE DIAGNOSES: Abdominal pannus, incisional hernia, macromastia, status post massive weight loss. POSTOPERATIVE DIAGNOSES: Same. PROCEDURE: Panniculectomy with [id number] incision, bilateral reduction mammoplasty with free nipple graft, and hernia repair performed by Dr. Ga. SURGEON: Tena Brown MD VOICE PROFESSOR: Yvonne Childers PA-C ANESTHESIA: General. COMPLICATIONS: None. INDICATION FOR THE PROCEDURE: The patient is a 67-year-old female who presented to my office regarding excess skin of her lower abdomen causing intertrigo and large pendulous breasts causing back, neck and shoulder pain with intertrigo, who desired panniculectomy and breast reduction. She was noted on exam to have a hernia and a CT scan was obtained, which showed a hernia as well. She was referred to Dr. Ga for a hernia repair and desired to have all procedures performed simultaneously if possible. Due to the very long sternal notch to nipple length as well as deformity resulting from the patient's prior bariatric surgery, we discussed performing this as a free nipple graft. BRIEF DESCRIPTION OF THE PROCEDURE: Risks, benefits, and alternatives of the procedure were explained to the patient, who agreed and signed consent. She was identified and marked in the preoperative holding area. We again reviewed free nipple grafting. We also discussed possible vertical incision to allow access to her hernias. The patient was brought to the operating room, where she was positioned supine and placed under general anesthesia without incident. Lewis catheter was inserted. Surgical site was prepped and draped sterilely. A time-out procedure was performed. We began with the panniculectomy portion of the procedure so that Dr. Ga could perform hernia repair. 1% lidocaine with epinephrine was used to anesthetize the planned incisions. A 15 blade scalpel was used to make the incision through epidermis and superficial dermis. The incision was deepened through deep dermis, subcutaneous fat, Deacon's fascia down to anterior abdominal wall in a beveled fashion in order to avoid entering the inguinal region. The flap was raised along the abdominal wall fascia up to the level of the umbilicus using electrocautery. Hemostasis was achieved using combination of electrocautery and suture ligation. The umbilicus was circumscribed using a 15 blade scalpel and was dissected out through subcutaneous tissue using electrocautery. Just superior to the umbilicus, a hernia defect could be palpated and as such I began vertical incision, which was marked as a narrow triangular incision in order to allow best exposure to the ventral hernia. The incision was anesthetized using 1% lidocaine with epinephrine and a 15 blade scalpel was used to make the incision, which was deepened through dermis and subcutaneous fat on the abdominal wall. This skin was resected. At this point in time, Dr. Ga scrubbed in to perform hernia repair. He performed repair and overlay mesh as dictated in his operative report. Following this, remainder of the panniculectomy procedure was undertaken. A vertical incision was carried down to meet the lower abdominal portion of the skin flap and this was divided up to the level of the umbilicus. Skin flaps were marked for resection. These were excised using a 15 blade scalpel and electrocautery. Hemostasis was achieved with electrocautery and this tissue was excised bilaterally with reasonable symmetry. Bed was placed in a flexed position and T incision was brought together in the midline in the suprapubic area. Two 15-Sinhala Javier drains were placed. Tisseel was sprayed in order to facilitate hemostasis and minimize likelihood of seroma formation. Closure was begun in a lateral to medial direction using 2-0 Vicryl Deacon's fascia sutures, 2-0 Vicryl deep dermal sutures, and 2-0 PDO running Quill suture. The umbilical stalk was inset into the vertical incision using 4-0 chromic half buried horizontal mattress sutures. A small inverted triangular incision was made to facilitate inset. A vertical incision was closed in similar fashion with the exception being 3-0 PDS interrupted superficial dermal sutures instead of Quill in the infraumbilical region. Dermabond Prineo was applied to all incisions and Xeroform was packed into the umbilicus. Drains were sutured into place using 3-0 nylon suture. At this point, a temporary dressing was placed over the abdomen and the breasts were reprepped for breast reduction and new drapes were placed. 1% lidocaine with epinephrine was used to anesthetize the planned incisions. I began with the left side. A breast tourniquet was applied using a Monie clamp and lap sponge. A 42-mm cookie cutter was used to circumscribe the nipple-areolar complex. The nipple-areolar complex was then removed as a full thickness skin graft and placed on the back table in a saline soaked sponge. At this point, the tourniquet was released. An inframammary fold incision was made using a 15 blade scalpel. The electrocautery was used to deepen the incision through subcutaneous fat, breast parenchyma down the chest wall. Care was taken to perform this in a beveled fashion ligating vessels as needed and achieving hemostasis with electrocautery. Once the breasts had been mostly undermined, the superior incision was made to the inferior aspect of the keyhole incision. This was performed using 15 blade scalpel. The incision was deepened using electrocautery again full thickness through the breast. Similar incision was made laterally. Centrally, the skin was incised using electrocautery and additional breast parenchyma was resected again in a bevelled fashion in order to obtain some projection of the breast. This tissue was passed after weighing and weighed 1202 grams on the left side. Hemostasis was achieved with electrocautery. 0.25% Marcaine plain was used to anesthetize the incisions as well as the pectoralis fascia. A 15-Sinhala Javier drain was brought out through a separate stab incision laterally toward the axilla. The keyhole area was then incised using 15 blade scalpel and deepithelialized. The T-junction was brought together using 2-0 Vicryl suture. Closure was first begun lateral to medial using 2-0 Vicryl deep dermal sutures and then medial to lateral using 2-0 Vicryl deep dermal sutures. Vertical limb was closed using a combination of 2-0 Vicryl deep dermal sutures and 3-0 PDS interrupted superficial dermal sutures. Inframammary fold incision was closed using 2-0 PDO deep dermal Quill sutures for the majority of the incision. The vertical limb and inframammary fold were then closed using 3-0 Vicryl running subcuticular suture. Nipple areolar complex graft was inspected and thinned using a curved iris scissor. It was placed into the recipient bed and sutured in place using 4-0 silk tie over bolster sutures and 4-0 chromic interrupted sutures. A tie-over bolster dressing was created using Xeroform and sterile cotton. A similar procedure was undertaken on the right side with total resection weight of 1188 grams. There was reasonable symmetry at the end of the case. Dermabond Prineo was applied to the incisions. Dry dressings were placed. The patient was awakened and transferred to recovery room in satisfactory condition. Yvonne Childers PA-C was present and scrubbed throughout the entire procedure and was instrumental in providing retraction during dissection of the pannus as well as the breast, performing preparation of the nipple graft and assisting in simultaneous wound closure. I attest to the content of the Intraoperative Record and any orders documented therein. Any exception s are noted below.
== END 2017-11-11 13:51 | disposition home health service (06) ==
LOC: C.ACU 05:45 → C.MSW 16:15 → ENRESERV 16:59
PROVIDERS: ADMIT Plastic Surgery; ATTEND Plastic Surgery
DX: E65 Localized adiposity (principal); N62 Hypertrophy of breast; K43.2 Incisional hernia without obstruction or gangrene; L82.1 Other seborrheic keratosis; R00.0 Tachycardia, unspecified; E11.9 Type 2 diabetes mellitus without complications; K21.9 Gastro-esophageal reflux disease without esophagitis; Z98.84 Bariatric surgery status; Z90.49 Acquired absence of other specified parts of digestive tract; Z90.710 Acquired absence of both cervix and uterus; Z90.722 Acquired absence of ovaries, bilateral; Z87.891 Personal history of nicotine dependence; Z80.49 Family history of malignant neoplasm of other genital organs; Z80.1 Family history of malignant neoplasm of trachea, bronchus and lung; Z80.2 Family history of malignant neoplasm of other respiratory and intrathoracic organs